=== PATIENT | female | born 1980 | race African-American/Black ===

== ENCOUNTER 2017-06-30 01:38 | Emergency (ER) | payer OTHER ==
[~2017-06-30 01:38] MED LIST: ALBU1AER INH; BECL0.07 INH; CLON.1 PO; CYCL-36 PO; DEPA500T PO; HYDR-2768 PO; LITH300 PO; OMPR20CCR PO; RISP4TAB41 PO
[2017-06-30] MEDS ORDERED: LACTATED RINGER'S 1000 ML INJ 1,000 ML IV SCH (02:48)
--- NOTE | 2017-06-30 02:59 | PD ---
HPI Chief Complaint Complains abdominal pain mainly when she sneezes but generally abdominal pain for 2 days Date Seen: Jun 30, 2017 Time Seen: 02:45 Travel History International Travel<30 Days: No Contact w/Intl Traveler<30Days: No Known Affected Area: No History of Present Illness HPI Patient is 36-year-old black female at 29 weeks is brought in by the intermediate where she is incarcerated for evaluation of abdominal pain for last 2 days, she denies bleeding or leakage of fluid, heart rate tracing is reactive and no contractions seen. Her pain is exacerbated greatly when she sneezes, and she has a history of asthma and sinus congestion Weeks Gestation: 29 Para: 5 : 6 Last Menstrual Period: Jun 30, 2017 History Past Medical History Narrative Medical Asthma Obstetric History Obstetric History 5 vaginal deliveries at term Past Surgical History Narrative Surgical Gallbladder removed Social History Narrative Social History Currently in intermediate Alcohol Use: No Tobacco Use: No Substance Abuse: No Allergies-Medications (Allergen,Severity, Reaction): Coded Allergies: No Known Allergies (Unverified , 06/30/17) Home Meds Active Scripts Cyclobenzaprine Hcl (Flexeril) 10 Mg Tab, 10 MG PO Q8HR Y for PAIN SCALE 1 TO 10 , #15 TAB Prov:Albino Peoples MD 04/20/16 Divalproex Sodium 500 mg (Depakote 500 mg) 500 Mg Tab, 500 MG PO DAILY, #15 TAB Prov:Erika Mas MD 04/07/16 Reported Medications Beclomethasone Diprop 40 mcg (Qvar 40 mcg) 40 Mcg Aer, 1 PUFF INH BID, BOX 04/07/16 Albuterol Sulfate (Proair Hfa) 8.5 Gm Aero, 2 PUFF INH Q4-6H Y for SHORTNESS OF BREATH, BOX * SHAKE WELL BEFORE USE * 04/07/16 Omeprazole (Prilosec 20 Mg Cap) 20 Mg Capcr, 20 MG PO DAILY, CAP 04/07/16 [place] Carbonate (Lithotabs) 300 Mg Tab, 300 MG PO TID, TAB 04/07/16 Risperidone (Risperdal) 4 Mg Tab, 4 MG PO HS, TAB 04/07/16 Hydrochlorothiazide (Hctz) 25 Mg Tab, 25 MG PO DAILY, TAB 04/07/16 Clonidine 0.1 mg (Catapres 0.1 mg) 0.1 Mg Tab, 0.1 MG PO HS, TAB 04/07/16 Review of Systems General / Constitutional: No: Fever, Weight Gain, Chills, Other Eyes: No: Diploplia, Blurred Vision, Visual changes, Pain, Photophobia HENT: No: Headaches, Vertigo, Lightheadedness Cardiovascular: No: Irregular Rhythm, Chest Pain or Discomfort, Palpitations, Tachycardia, Syncope, Varicosities, Edema, Cyanosis Respiratory: No: Cough, Short of Breath, Other Gastrointestinal: Abdominal Pain, No: Nausea, Vomiting, Diarrhea Genitourinary: No: Decreased Urinary Output, Oliguria Musculoskeletal: No: Limited ROM, Weakness, Cramping, Edema, Pain Skin: No Rash, No Itching, No Dryness, No Lumps, No Change in Pigmentation, No Change in Nails, No Alopecia, No Lesions Neurologic: No: Weakness, Dizziness, Syncope, Focal Abnormalities, Coordination Problem, Headache, Slurred Speech, Seizures Psychiatric: No: Depression, Suicidal Ideations, Homicidal Ideation Endocrine: No: Heat Intolerance, Cold Intolerance, Polydipsia, Polyuria, Other Physical Exam Narrative GENERAL: Well-nourished, well-developed patient. SKIN: Warm and dry. HEAD: Normocephalic and atraumatic. EYES: No scleral icterus. No injection or drainage. ENT: No nasal drainage noted. Mucous membranes pink. Airway patent. NECK: Supple, trachea midline. No JVD. CARDIOVASCULAR: Regular rate and rhythm without murmurs, gallops, or rubs. RESPIRATORY: Breath sounds equal bilaterally. No accessory muscle use. BREASTS: Bilateral exam showed no masses , no retractions, no nipple discharge. ABDOMEN/GI: Abdomen soft, tenderness in the upper quadrants mainly right upper quadrant , minimal to none in the lower quadrants, bowel sounds present, no rebound, + guarding Gravid to [-29] weeks size Fundal Height: [29-] GENITOURINARY: External Genitalia: intact and normal in appearance BUS glands: [-] Cervix: [Posterior-] Dilatation: [Closed-] Effacement: [-] Thick Station: [-3] ] Membranes: [intact ] Uterine Contractions: [-none] FHT's: Category: [1-] Baseline: [-133] Reactive: [-yes] Variability: [-mod] Decels: [-none] EXTREMITIES: No cyanosis or edema. BACK: Nontender without obvious deformity. No CVA tenderness. NEUROLOGICAL: Awake and alert. Motor and sensory grossly within normal limits. Five out of 5 muscle strength in all muscle groups. Normal speech. Data Data Orders Orders Vital Signs (Adult) .ON ADMISSION (06/30/17 02:48) ^ Labor Status (06/30/17 02:48) Cbc No Diff, Includes Plts (06/30/17 02:48) Comprehensive Metabolic Panel (06/30/17 02:48) Lactated Ringer's 1000 Ml Inj (Lr 1000 M (06/30/17 02:48) Ob/Psych Drug Screen, Urine (06/30/17 02:48) Fentanyl Inj (Fentanyl Inj) (06/30/17 03:00) MDM Interpretation(s) 28-year-old black female at 29 weeks who is brought in by the intermediate for evaluation of abdominal pain mainly upper abdominal pain. She has no bleeding or leakage of fluid. No contractions noted, heart rate tracing reactive, cervix is closed thick and high, urinalysis negative by dip on the floor Plan Plan a liter of IV fluid for hydration 50 g fentanyl IV check CBC CMP urine drug screen Diagnosis Diagnosis: Primary Impression: Upper abdominal pain, unspecified Additional Impression: 29 weeks gestation of Disposition: [address] LAW ENFORCEMNT Condition: Stable Rey Owen II, MD Jun 30, 2017 02:59
[2017-06-30 03:33] LABS: ALT (GPT) 21 U/L (10-53); ANION GAP 7 MEQ/L (5-15); AST (GOT) 25 U/L (15-37); BICARBONATE 25.6 MEQ/L (21.0-32.0); BLOOD UREA NITROGEN 8 MG/DL (7-18); CHLORIDE 106 MEQ/L (98-107); GLOMERULAR FILTRATION RATE 105 ML/MIN (>89); POTASSIUM 4.2 MEQ/L (3.5-5.1); SODIUM (NA) 139 MEQ/L (136-145)
[2017-06-30 03:36] LABS: ALKALINE PHOSPHATASE 105 U/L (45-117); TOTAL BILIRUBIN ADULT 0.2 MG/DL (0.2-1.0)
[2017-06-30 03:47] LABS: HEMATOCRIT 43.3 % (35.0-46.0); MEAN CORPUSCULAR HEMOGLOBIN 31.2 PG (27.0-34.0); MEAN CORPUSCULAR HGB CONC 33.9 % (32.0-36.0); PLATELET COUNT 253 TH/MM3 (150-450); RED CELL DISTRIBUTION WIDTH 12.8 % (11.6-17.2); REVIEW FLAG FINAL; WHITE BLOOD COUNT 18.9 TH/MM3 (4.0-11.0)
[2017-07-04 11:53] LABS: BATH SALTS (MDPV) UR NEG (NEG); ECSTASY (MDMA) UR NEG (NEG); GABAPENTIN UR NEG (NEG); HEROIN (6-ACETYLMORPHINE) UR NEG (NEG); HYDROMORPHONE U NEG (NEG); K2 SPICE UR NEG (NEG); OBMETHADONE UR NEG (NEG); PHENCYCLIDINE URINE NEG (NEG)
== END 2017-06-30 03:55 ==
LOC: EEVIPCON 01:38 → HOBED 01:38
DX: O26.893 Other specified pregnancy related conditions, third trimester (principal); R10.9 Unspecified abdominal pain; J45.909 Unspecified asthma, uncomplicated; Z3A.29 29 weeks gestation of pregnancy
CPT/HCPCS: 80053; 80307; 85027; 96374; 99284; G0481; J3010; J7120

== ENCOUNTER 2017-08-31 12:56 | Inpatient (IN) | payer OTHER ==
[2017-08-31] VITALS (35 sets, daily range): BP systolic 94–136; BP diastolic 53–87; PULSE 84–104; RESP 17–18; TEMP 97.8–98.6
[~2017-08-31] VITALS: Ht 170.2 cm; Wt 103.0 kg
[2017-08-31] MEDS ORDERED: ONDANSETRON HCL 4 MG/2 ML VIAL IV PUSH PRN (13:15)
[2017-08-31] MEDS ORDERED: ACETAMINOPHEN 325 MG TAB PO PRN (13:15)
[2017-08-31] MEDS ORDERED: SODIUM CHLORIDE 0.9% FLUSH 10 ML FLUSH IV FLUSH PRN ×2 (13:15)
[2017-08-31] MEDS ORDERED: CITRIC ACID-SODIUM CITRATE LIQ 30 ML UDC PO SCH (13:15)
[2017-08-31] MEDS ORDERED: DOCUSATE SODIUM 100 MG CAP PO PRN (13:15)
[2017-08-31] MEDS ORDERED: LIDOCAINE HCL 1% 50 ML VIAL INFIL PRN (13:15)
[2017-08-31] MEDS ORDERED: OXYTOCIN 30 UNITS-500ML PREMIX 500 ML IV ONE (13:15)
[2017-08-31] MEDS ORDERED: LIDOCAINE HCL 1% 50 ML VIAL I-DERMAL PRN (13:15)
[2017-08-31] MEDS ORDERED: MINERAL OIL 10 ML VIAL TOPICAL PRN (13:15)
[2017-08-31] MEDS ORDERED: ZOLPIDEM TARTRATE 5 MG TAB PO PRN (13:15)
--- NOTE | 2017-08-31 13:32 | HHI.HP ---
HPI Chief Complaint headache, elevated BP, protein in urine 2+ at 38 + weeks EGA Travel History International Travel<30 Days: No Contact w/Intl Traveler<30Days: No Known Affected Area: No History of Present Illness HPI 36 yo bf at 38+ weeks estimated gestational age, brought to office from [facility] for her fifth visit with [facility] beginning at about 32 weeks. She is high risk due to late entry, advanced maternal age, incarceration, asthma and bronchitis unknown if gestational diabetes--could not get a glucola done, nor could I get labs from [facility]. Not hypertensive initially. This am she apparently had a BP of ~160/110 and was given aldomet and sent to office. Complaining of severe headache, which is new. Has nausea. Is anxious. 2+ protein. moderate swelling. Cervix in office soft but closed. Has had five vaginal births at term with no described complications. Weeks Gestation: 38 Para: 5 : 6 History Past Medical History Narrative Medical history of pancreatitis-chronic and GERD history of post depression hx of bipolar disorder Allergies-Medications (Allergen,Severity, Reaction): Coded Allergies: No Known Allergies (Unverified , 06/30/17) Home Meds Active Scripts Cyclobenzaprine Hcl (Flexeril) 10 Mg Tab, 10 MG PO Q8HR Y for PAIN SCALE 1 TO 10 , #15 TAB Prov:Albino Peoples MD 04/20/16 Divalproex Sodium 500 mg (Depakote 500 mg) 500 Mg Tab, 500 MG PO DAILY, #15 TAB Prov:Erika Mas MD 04/07/16 Reported Medications Beclomethasone Diprop 40 mcg (Qvar 40 mcg) 40 Mcg Aer, 1 PUFF INH BID, BOX 04/07/16 Albuterol Sulfate (Proair Hfa) 8.5 Gm Aero, 2 PUFF INH Q4-6H Y for SHORTNESS OF BREATH, BOX * SHAKE WELL BEFORE USE * 04/07/16 Omeprazole (Prilosec 20 Mg Cap) 20 Mg Capcr, 20 MG PO DAILY, CAP 04/07/16 [place] Carbonate (Lithotabs) 300 Mg Tab, 300 MG PO TID, TAB 04/07/16 Risperidone (Risperdal) 4 Mg Tab, 4 MG PO HS, TAB 04/07/16 Hydrochlorothiazide (Hctz) 25 Mg Tab, 25 MG PO DAILY, TAB 04/07/16 Clonidine 0.1 mg (Catapres 0.1 mg) 0.1 Mg Tab, 0.1 MG PO HS, TAB 04/07/16 Physical Exam Narrative GENERAL: Well-nourished, well-developed patient. SKIN: Warm and dry. HEAD: Normocephalic and atraumatic. EYES: No scleral icterus. No injection or drainage. ENT: No nasal drainage noted. Mucous membranes pink. Airway patent. NECK: Supple, trachea midline. No JVD. CARDIOVASCULAR: Regular rate and rhythm without murmurs, gallops, or rubs. RESPIRATORY: Breath sounds equal bilaterally. No accessory muscle use. BREASTS: Bilateral exam showed no masses , no retractions, no nipple discharge. ABDOMEN/GI: Abdomen soft, non-tender, bowel sounds present, no rebound, no guarding FH 41. sonogram last week showed 75% vertex with anterior placenta EXTREMITIES: mild edema. BACK: Nontender without obvious deformity. No CVA tenderness. NEUROLOGICAL: Awake and alert. Motor and sensory grossly within normal limits. Five out of 5 muscle strength in all muscle groups. Normal speech. cervix soft, long, posterior FHT 140s Caprini VTE Risk Assessment Caprini VTE Risk Assessment: No/Low Risk (score <= 1) Caprini Risk Assessment Model Point Value = 1 Point Value = 2 Point Value = 3 Point Value = 5 Age 41-60 Minor surgery BMI > 25 kg/m2 Swollen legs Varicose veins or History of unexplained or recurrent spontaneous Oral contraceptives or hormone replacement Sepsis (< 1 month) Serious lung disease, including pneumonia (< 1 month) Abnormal pulmonary function Acute myocardial infarction Congestive heart failure (< 1 month) History of inflammatory bowel disease Medical patient at bed rest Age 61-74 Arthroscopic surgery Major open surgery (> 45 min) Laparoscopic surgery (> 45 min) Malignancy Confined to bed (> 72 hours) Immobilizing plaster cast Central venous access Age >= 75 History of VTE Family history of VTE Factor V Leiden Prothrombin [id number] Lupus anticoagulant Anticardiolipin antibodies Elevated serum homocysteine Heparin-induced thrombocytopenia Other congenital or acquired thrombophilia Stroke (< 1 month) Elective arthroplasty Hip, pelvis, or leg fracture Acute spinal cord injury (< 1 month) Prophylaxis Regimen Total Risk Factor Score Risk Level Prophylaxis Regimen 0-1 Low Early ambulation 2 Moderate Order ONE of the following: *Sequential Compression Device (SCD) *Heparin 5000 units SQ BID 3-4 Higher Order ONE of the following medications: *Heparin 5000 units SQ TID *Enoxaparin/Lovenox 40 mg SQ daily (WT < 150 kg, CrCl > 30 mL/min) *Enoxaparin/Lovenox 30 mg SQ daily (WT < 150 kg, CrCl > 10-29 mL/min) *Enoxaparin/Lovenox 30 mg SQ BID (WT < 150 kg, CrCl > 30 mL/min) AND/OR *Sequential Compression Device (SCD) 5 or more Highest Order ONE of the following medications: *Heparin 5000 units SQ TID (Preferred with Epidurals) *Enoxaparin/Lovenox 40 mg SQ daily (WT < 150 kg, CrCl > 30 mL/min) *Enoxaparin/Lovenox 30 mg SQ daily (WT < 150 kg, CrCl > 10-29 mL/min) *Enoxaparin/Lovenox 30 mg SQ BID (WT < 150 kg, CrCl > 30 mL/min) AND *Sequential Compression Device (SCD) Data Data Orders Orders Admit To Inpatient (08/31/17 ) Code Status (08/31/17 13:15) Activity Bed Rest (08/31/17 13:15) Intake + Output Q1H (08/31/17 13:15) Notify Dr. Phillips (08/31/17 13:15) Heart CONTINUOUS (08/31/17 13:15) Urinary Catheter Management MASON.Q8H (08/31/17 13:15) Lactated Ringer's 1000 Ml Inj (Lr 1000 M (08/31/17 13:15) Sodium Chloride 0.9% Flush (Ns Flush) (08/31/17 13:15) Sodium Chloride 0.9% Flush (Ns Flush) (08/31/17 21:00) Acetaminophen (Tylenol) (08/31/17 13:15) Ondansetron Inj (Zofran Inj) (08/31/17 13:15) Docusate Sodium (Colace) (08/31/17 13:15) Zolpidem (Ambien) (08/31/17 13:15) Hepatic Functional Panel (08/31/17 13:15) Cbc No Diff, Includes Plts (08/31/17 13:15) Uric Acid (08/31/17 13:15) Urinalysis - C+S If Indicated (08/31/17 13:15) Vital Signs (Adult) .Per protocol (08/31/17 13:15) Lidocaine 1% Inj (50 Ml) (Xylocaine 1% I (08/31/17 13:15) Citric Acid-Sodium Citrate Liq (Bicitra (08/31/17 13:15) Fentanyl Inj (Fentanyl Inj) (08/31/17 13:15) Fentanyl Inj (Fentanyl Inj) (08/31/17 13:15) Complete Blood Count With Diff (08/31/17 13:15) Hold Clot (08/31/17 13:15) Abo/Rh Blood Type (08/31/17 13:15) Rapid Plasma Regin (Rpr) W Ttr (08/31/17 13:15) Hepatitis Profile (08/31/17 13:15) No Care Spec Serology (08/31/17 13:15) Resp Oxygen Non Rebreathe Mask (08/31/17 ) Oxytocin 30 Units-500ml Premix (Pitocin (08/31/17 13:15) Lidocaine 1% Inj (50 Ml) (Xylocaine 1% I (08/31/17 13:15) Light Mineral Oil (Muri-Lube Oil) (08/31/17 13:15) Admit To Inpatient (08/31/17 ) Diet Regular Basic (08/31/17 Lunch) Activity Oob Ad Chana (08/31/17 13:15) ^ Labor Induction (08/31/17 13:15) ^ Vaginal Insert (08/31/17 13:15) ^ Vaginal Lavage (08/31/17 13:15) Heart (08/31/17 13:15) Sodium Chloride 0.9% Flush (Ns Flush) (08/31/17 21:00) Sodium Chloride 0.9% Flush (Ns Flush) (08/31/17 13:15) Inpatient Certification (08/31/17 ) Specimen To Be Collected PRN (08/31/17 13:15) Assessment/Plan Assessment and Plan grand multip with late care due to incarceration has symptoms of preclampsia mild at 38 + weeks. Lamar score is poor Will use cervidil and if this exacerbates her asthma will pull it and use low dose pit MgSO4 and BP meds pending labs and vitals anticipate will notify manager public Rosario Perez MD Aug 31, 2017 13:32
[2017-08-31] MEDS ORDERED: TERBUTALINE INJ 1 MG/ML AMP ONE (14:20)
[2017-08-31] MEDS ORDERED: TERBUTALINE INJ 1 MG/ML AMP SQ SCH (14:20)
[2017-08-31 14:25] LABS: AUTOMATED NEUTROPHIL # 11.7 TH/MM3 (1.8-7.7); BASOPHIL # 0.1 TH/MM3 (0-0.2); BASOPHIL % 0.4 % (0.0-2.0); EOSINOPHIL # 0.3 TH/MM3 (0-0.4); EOSINOPHIL % 2.1 % (0.0-4.0); HEMATOCRIT 41.6 % (35.0-46.0); HEMO FLAGS DIFF FINAL; LYMPH % 15.1 % (9.0-44.0); LYMPHOCYTE # 2.3 TH/MM3 (1.0-4.8); MEAN CELL VOLUME 89.3 FL (80.0-100.0); MEAN CORPUSCULAR HEMOGLOBIN 30.1 PG (27.0-34.0); MEAN CORPUSCULAR HGB CONC 33.7 % (32.0-36.0); MONO % 6.6 % (0.0-8.0); NEUT % 75.8 % (16.0-70.0); PLATELET COUNT 208 TH/MM3 (150-450); RED BLOOD COUNT 4.66 MIL/MM3 (4.00-5.30); RED CELL DISTRIBUTION WIDTH 13.3 % (11.6-17.2); WHITE BLOOD COUNT 15.4 TH/MM3 (4.0-11.0)
[2017-08-31 14:31] LABS: BACTERIA, URINE OCC /hpf; BLOOD, URINE SMALL (NEG); COMMENT (UR) CULTURE INDICATED; CULTURE IF INDICATED CULTURE INDICATED; GLUCOSE,URINE NEG (NEG); KETONE, URINE TRACE mg/dL (NEG); MUCUS URINE FEW /lpf (OCC); NITRITE,URINE NEG (NEG); PH, URINE 6.5 (5.0-8.5); SQUAMOUS EPITHELIAL CELL URINE 5 /hpf (0-5); URINE COLOR YELLOW (YELLW/STRAW)
[2017-08-31 14:59] LABS: URIC ACID 6.5 MG/DL (2.6-6.0)
[2017-08-31 15:01] LABS: INDIRECT BILIRUBIN 0.2 MG/DL (0.0-0.8); TOTAL BILIRUBIN ADULT 0.3 MG/DL (0.2-1.0)
[2017-08-31] MEDS ORDERED: TERBUTALINE INJ 1 MG/ML AMP SQ PRN (15:06)
[2017-08-31] MEDS: LACTATED RINGER'S 1000 ML INJ 1,000 ML IV SCH ×2 (15:06→20:47)
--- NOTE | 2017-08-31 19:36 | PD.LABORPN ---
Objective Vital Signs Vital Signs Date Time Temp Pulse Resp B/P (MAP) Pulse Ox O2 Delivery O2 Flow Rate FiO2 08/31/17 19:22 98.0 08/31/17 19:11 17 08/31/17 19:00 92 111/74 (86) 08/31/17 18:15 18 08/31/17 18:00 91 94/58 (70) 08/31/17 17:15 98.6 08/31/17 17:00 90 111/72 (85) 08/31/17 16:01 100 102/53 (69) 08/31/17 15:00 97.8 08/31/17 15:00 18 08/31/17 15:00 104 08/31/17 14:45 96 118/76 (90) 08/31/17 14:30 90 110/71 (84) 08/31/17 14:15 86 106/70 (82) 08/31/17 14:00 84 111/72 (85) 08/31/17 13:46 88 117/78 (91) 08/31/17 13:30 18 08/31/17 13:30 98 115/77 (90) 08/31/17 13:25 90 113/72 (86) Objective Called by RN that strip showed repetitive late decelerations with good BTBV and cervidil held. Terb given for closely spaced contractions. No further lates strip currently category one, but no contaactions Weeks Gestation: 38 Gest Age Assessed Date: Aug 31, 2017 Assessment/Plan Assessment and Plan will start low dose pitocin and watch closely. Rosario Perez MD Aug 31, 2017 19:36
[2017-08-31] MEDS ORDERED: OXYTOCIN 30 UNITS-500ML PREMIX 500 ML IV SCH (19:45)
[2017-08-31] MEDS ORDERED: SODIUM CHLORIDE 0.9% FLUSH 10 ML FLUSH IV FLUSH SCH ×2 (21:00)
[2017-09-01] VITALS (79 sets, daily range): BP systolic 88–136; BP diastolic 45–90; PULSE 71–104; RESP 16–20; TEMP 97.6–98.6; O2SAT 96–100
--- NOTE | 2017-09-01 07:45 | HHI.PR ---
[facility] Note Note S: Patient doing well, states contractions are mildly painful, denies loss of fluid, occasional vaginal spotting. Denies headache, blurred vision, epigastric pain. O: VS: BP range overnight 112-122/71-90. Pulse range 70 to 80s Exam: Closed/thick/high/soft/mid position FHTs: 130s to 140s, moderate variability, accelerations present, no decelerations present at this time TOCO: Contractions every 3-5 minutes A/P 36-year-old at 38 weeks and 4 days by LMP and 33 week ultrasound here today for induction of labor secondary to category 2 tracing 1. IUP: Cat 1 tracing currently, yesterday had cat 2 tracing with intermittent and prolonged lates on admission, responded a Terb and IV fluid bolus. - Continuous monitoring and tocometry - Cephalic by ultrasound this morning, GBS unknown, collected rapid GBS now, EFW 7.5 pounds. On 08/15/2017 by ultrasound 3013 g 74th percentile anterior placenta - PNLs pending. 2. IOL: secondary to persistent category 2 tracing: Lamar score unfavorable, patient on low-dose pit overnight, had some lates w/ pit at 5 mu/min, currently at 3 and will d/c now. Will place Cervidil for ripening, allow to eat if reassuring tracing after 2 hours on cervidil. Patient understands that ultimately may end up with a due to intolerance of labor however our goal is for a safe vaginal delivery as she is multiparous. 3. Grand multipara: Will have uterotonic's in the room, active 3rd stage and prepare for PPH, patient has a history of hemorrhage. T&S. 4. Advanced maternal age: Normal anatomy, no aneuploidy screening performed 5. Asthma: controlled w/o meds, avoid hemabate 6. h/o BPD and PPD: will follow closely and address 7. Elevated BP: per notes say had elevated BP as outpatient and headache, only 1 diastolic in 90s here, pt w/o sn/sx of prec, HELLP labs WNL (fish agent not done), no proteinuria on arrival will continue with routine vitals. Edson Baltazar MD Sep 01, 2017 07:45
[2017-09-01] MEDS ORDERED: DINOPROSTONE 10 MG VAG INSERT VAGINAL ONE (08:15)
[2017-09-01] MEDS ORDERED: INFLUENZA VIRUS VACCINE (QUADRIVALENT) 0.5 ML SYR IM ONE (10:00)
[2017-09-01] MEDS ORDERED: PNEUMOCOCCAL POLYVALENT INJ 25 MCG/0.5 ML SYR IM ONE (10:00)
[2017-09-01] MEDS ORDERED: fentaNYL 2MCG-BUPIV 0.125% INJ 100 ML ONE (14:00)
--- NOTE | 2017-09-01 14:11 | PD.LABORPN ---
Subjective Subjective states this is the worst pain she has ever felt. can't tolerate cervical checks or attempt to ARM Objective Vital Signs Vital Signs Date Time Temp Pulse Resp B/P (MAP) Pulse Ox O2 Delivery O2 Flow Rate FiO2 09/01/17 12:44 88 119/70 (86) 09/01/17 12:44 98.3 18 09/01/17 09:15 87 16 09/01/17 09:15 97.8 09/01/17 09:15 110/65 (80) 09/01/17 07:16 82 121/82 (95) 09/01/17 07:15 18 09/01/17 07:01 83 114/79 (91) 09/01/17 06:46 79 118/79 (92) 09/01/17 06:31 79 122/73 (89) 09/01/17 06:16 84 09/01/17 06:16 108/90 (96) Objective 50%/-3/2 cm infant applied to inner os will not permit AROM without epidural first strip reactive, but has had intermittent periods of what appear to be lates-- they come and they resolve Weeks Gestation: 38 Gest Age Assessed Date: Aug 31, 2017 Medical induction start date: Aug 31, 2017 Medical induction start time: 19:00 Assessment/Plan Assessment and Plan grand multip admitted with elevated blood pressures and proteiniuria but likely these were anxiety and UTI however periods of late decelerations on her strip followed by resolution have precluded discharge will AROM after epidural and commit to process. Either vaginal or section. Rosario Perez MD Sep 01, 2017 14:11
[2017-09-01] MEDS ORDERED: OXYTOCIN 30 UNITS-500ML PREMIX 500 ML IV SCH (14:15)
[2017-09-01] MEDS ORDERED: SODIUM CHLORIDE 0.9% FLUSH 10 ML FLUSH IV FLUSH PRN ×2 (14:15→17:00)
[2017-09-01] MEDS ORDERED: ePHEDrine/NS 25 MG/5 ML SYR ONE (14:41)
[2017-09-01] MEDS: ePHEDrine/NS 25 MG/5 ML SYR IV PUSH PRN ×3 (14:42→14:58)
[2017-09-01] MEDS ORDERED: PENICILLIN G POTASSIUM INJ 5,000,000 UNITS in SODIUM CHLORIDE 0.9% INJ 100 ML IV ONE (15:00)
[2017-09-01] MEDS: LACTATED RINGER'S 1000 ML INJ 1,000 ML IV SCH (15:03)
[2017-09-01] MEDS ORDERED: DO NOT ADMINISTER ANTICOAGULANTS PRN (15:15)
[2017-09-01] MEDS ORDERED: NO SYSTEM NARCOTICS PRN (15:15)
[2017-09-01] MEDS ORDERED: fentaNYL 2MCG-BUPIV 0.125% 100 ML EPIDURAL SCH (15:15)
[2017-09-01] MEDS ORDERED: ACETAMINOPHEN 1000 MG/100 ML 100 ML IV ONE ×2 (15:20→15:30)
[2017-09-01 16:14] LABS: BLOOD GAS BASE EXCESS 0.6 mmol/L (-2-2); BLOOD GAS O2 HGB SATURATION 17 % (90-100); CORD BLOOD GAS HCO3 27 mmol/L (21-29); CORD BLOOD GAS PCO2 61 mmHG (34-78); CORD BLOOD GAS PH 7.27 (7.14-7.42); CORD BLOOD GAS PO2 15 mmHG (3.0-40.0); DRAW SITE CORD BLOOD; STAT NO
--- NOTE | 2017-09-01 16:48 | PD.OB.DELI ---
Procedure Note Section Procedure Pre Op Diagnosis: (1) Late deceleration of heart rate (2) Hypertension affecting (3) Third trimester Post Op Diagnosis: (1) Delivered by section (2) Non-reassuring heart rate with late deceleration Performed by Rosario Perez Procedure: Primary Low Transverse Sec Indication for delivery: Nonreassuring heart tracing Previous condition: None Informed consent obtained: For anesthesia, For procedure Confirmed correct: Patient, Procedure, Site, Time-out taken Anesthesia: Epidural Medication prior to procedure: As documented in eMAR, Antacids, Antibiotics, IV , Antiemetics Monitoring during procedure: Blood pressure monitoring Urinary catheter: Inserted using sterile technique, To dependent drainage Sterile preparation: Duraprep, In usual fashion Position: Supine with wedge to right side Operative Features Skin Incision: Pfannenstiel Uterine Incision: Low transverse w/knife / blunt ext Membranes Ruptured: Artificially, Appearance of fluid (clear) Presentation: Other (rot) Delivery date: Sep 01, 2017 Delivery time: 16:47 Delivery of infant: Assisted : Female, Single One Minute : 8 Five Minute : 9 Weight: 7 Status of infant: Viable, Cord blood, Umbilical cord, Nursery present Placenta delivered: Intact Medications: Antibiotics, Oxytocin Estimated blood loss: 500 Procedure tolerated: Well Maternal Condition: Stable Condition: Stable Procedure in detail dictated Rosario Perez MD Sep 01, 2017 16:48
[2017-09-01] MEDS ORDERED: ZOLPIDEM TARTRATE 5 MG TAB PO PRN (17:00)
[2017-09-01] MEDS ORDERED: oxyCODONE/ACETAMINOPHEN 5 MG/325 MG TAB PO PRN (17:00)
[2017-09-01] MEDS ORDERED: ONDANSETRON HCL 4 MG/2 ML VIAL IV PUSH PRN (17:00)
[2017-09-01] MEDS ORDERED: SIMETHICONE 80 MG CHEWABLE TAB PO PRN (17:00)
[2017-09-01] MEDS: OXYTOCIN 30 UNITS-500ML PREMIX 500 ML IV ONE ×2 (17:00→17:53)
[2017-09-01] MEDS ORDERED: OXYTOCIN 30 UNITS-500ML PREMIX 500 ML ONE (17:52)
[2017-09-01] MEDS ORDERED: EPIDURAL-NALOXONE HCL 0.4 MG/ML AMP IV PUSH PRN (18:45)
[2017-09-01] MEDS ORDERED: EPIDURAL-NO SYSTEMIC NARCOTICS PRN (18:45)
[2017-09-01] MEDS ORDERED: EPIDURAL-DO NOT ADMINISTER ANTICOAGULANTS PRN (18:45)
[2017-09-01] MEDS ORDERED: EPIDURAL-DIPHENHYDRAMINE HCL 50 MG CAP PO PRN (18:45)
[2017-09-01] MEDS ORDERED: PENICILLIN G POTASSIUM INJ 2,500,000 UNITS in SODIUM CHLORIDE 0.9% INJ 100 ML IV SCH (19:00)
[2017-09-01] MEDS ORDERED: SODIUM CHLORIDE 0.9% FLUSH 10 ML FLUSH IV FLUSH SCH ×2 (21:00)
[2017-09-01] MEDS: EPIDURAL-DIPHENHYDRAMINE HCL 50 MG/ML VIAL IV PUSH PRN (21:19)
[2017-09-01] MEDS ORDERED: LACTATED RINGER'S 1000 ML INJ 1,000 ML IV SCH (21:48)
[2017-09-02] VITALS: BP 115/66; PULSE 98; RESP 18; TEMP 98.5
[2017-09-02] MEDS ORDERED: ACETAMINOPHEN 1000 MG/100 ML 100 ML IV SCH
[2017-09-02] MEDS ORDERED: OXYTOCIN 30 UNITS-500ML PREMIX 500 ML IV PRN (03:00)
[2017-09-02 04:30] VITALS: BP 112/65; PULSE 109; RESP 18; TEMP 98.7
[2017-09-02] MEDS: oxyCODONE/ACETAMINOPHEN 5 MG/325 MG TAB PO PRN ×3 (04:54→19:46)
[2017-09-02] MEDS: IBUPROFEN 600 MG TAB PO PRN ×3 (04:54→19:47)
[2017-09-02 05:57] LABS: AUTOMATED NEUTROPHIL # 14.3 TH/MM3 (1.8-7.7); BASOPHIL # 0.1 TH/MM3 (0-0.2); BASOPHIL % 0.3 % (0.0-2.0); EOSINOPHIL # 0.2 TH/MM3 (0-0.4); EOSINOPHIL % 0.9 % (0.0-4.0); HEMATOCRIT 36.1 % (35.0-46.0); HEMO FLAGS DIFF FINAL; LYMPH % 8.7 % (9.0-44.0); LYMPHOCYTE # 1.5 TH/MM3 (1.0-4.8); MEAN CELL VOLUME 89.9 FL (80.0-100.0); MEAN CORPUSCULAR HEMOGLOBIN 30.4 PG (27.0-34.0); MEAN CORPUSCULAR HGB CONC 33.8 % (32.0-36.0); MONO % 7.6 % (0.0-8.0); NEUT % 82.5 % (16.0-70.0); PLATELET COUNT 191 TH/MM3 (150-450); RED BLOOD COUNT 4.01 MIL/MM3 (4.00-5.30); RED CELL DISTRIBUTION WIDTH 13.3 % (11.6-17.2); WHITE BLOOD COUNT 17.4 TH/MM3 (4.0-11.0)
--- NOTE | 2017-09-02 08:03 | HHI.OB ---
Subjective Post Operative Day: 1 Remarks Doing well itching terribly pain moderate Objective Vitals/I&O Vital Signs Date Time Temp Pulse Resp B/P (MAP) Pulse Ox O2 Delivery O2 Flow Rate FiO2 09/02/17 04:30 98.7 109 18 112/65 (81) 09/02/17 00:00 98.5 98 18 115/66 (82) 09/01/17 20:30 98.6 101 18 121/89 (100) 09/01/17 18:25 88 118/72 (87) 09/01/17 18:25 97.7 20 09/01/17 17:50 75 18 115/71 (86) 97 09/01/17 17:35 71 16 109/65 (80) 09/01/17 17:35 96 09/01/17 17:20 78 18 118/72 (87) 99 09/01/17 17:05 74 18 106/57 (73) 100 09/01/17 16:50 79 104/67 (79) 09/01/17 16:50 18 09/01/17 16:50 98.4 09/01/17 16:50 97 09/01/17 15:35 84 09/01/17 15:31 88 121/72 (88) 09/01/17 15:30 81 09/01/17 15:23 78 123/62 (82) 09/01/17 15:20 95 09/01/17 15:20 84 121/65 (83) 09/01/17 15:19 83 113/72 (86) 09/01/17 15:16 84 124/65 (84) 09/01/17 15:13 79 122/66 (84) 09/01/17 15:11 94 125/66 (85) 09/01/17 15:10 97 09/01/17 15:07 85 114/45 (68) 09/01/17 15:05 81 09/01/17 15:05 82 111/56 (74) 09/01/17 15:02 118/64 (82) 09/01/17 15:02 86 09/01/17 15:01 18 09/01/17 15:00 92 09/01/17 15:00 114/62 (79) 09/01/17 15:00 85 09/01/17 14:59 85 113/56 (75) 09/01/17 14:57 85 114/53 (73) 09/01/17 14:55 86 09/01/17 14:55 88 114/59 (77) 09/01/17 14:53 77 114/61 (78) 09/01/17 14:50 79 09/01/17 14:50 90 116/64 (81) 09/01/17 14:48 87 112/56 (74) 09/01/17 14:47 80 114/57 (76) 09/01/17 14:45 76 121/57 (78) 09/01/17 14:45 75 09/01/17 14:43 79 117/63 (81) 09/01/17 14:41 86 110/61 (77) 09/01/17 14:40 82 09/01/17 14:36 91 117/74 (88) 09/01/17 14:35 103 09/01/17 14:34 98 121/70 (87) 09/01/17 14:32 99 120/73 (89) 09/01/17 14:30 98 136/80 (98) 09/01/17 14:30 98.5 18 09/01/17 14:30 95 09/01/17 14:28 104 116/89 (98) 09/01/17 14:26 94 122/82 (95) 09/01/17 14:25 95 128/82 (97) 09/01/17 14:25 98 09/01/17 14:23 93 126/77 (93) 09/01/17 14:20 84 09/01/17 14:15 92 09/01/17 14:10 91 09/01/17 12:44 88 119/70 (86) 09/01/17 12:44 98.3 18 09/01/17 09:15 87 16 09/01/17 09:15 97.8 09/01/17 09:15 110/65 (80) Result Diagram: 09/02/17 0524 Objective Remarks GENERAL: Well-nourished, well-developed patient. CARDIOVASCULAR: Regular rate and rhythm without murmurs, gallops, or rubs. RESPIRATORY: Breath sounds equal bilaterally. No accessory muscle use. ABDOMEN/GI: Abdomen soft, non-tender, bowel sounds present. Incision: Clean, dry and intact. bandage intact Fundus: Firm, non-tender at umbilicus. GENITOURINARY: Light to moderate bleeding. EXTREMITIES: No cyanosis or edema, non-tender, without signs of DVT. Medications and IVs Current Medications Medications (Trade) Dose Ordered Sig/Nelli Route Start Time Stop Time Status Last Admin (Tylenol) 650 mg Q4H PRN PO 08/31/17 13:15 (Flu (Quadrivalent) Vaccine Inj) 0.5 ml ONCE ONCE IM 09/02/17 10:00 09/02/17 10:01 Lactated Ringer's 1,000 ml @ 100 mls/hr Q10H IV 09/01/17 21:48 09/02/17 17:47 09/01/17 23:25 Oxytocin 500 ml @ 100 mls/hr UNSCH X1 PRN IV 09/02/17 03:00 09/03/17 02:59 (NS Flush) 2 ml BID IV FLUSH 09/01/17 21:00 (NS Flush) 2 ml UNSCH PRN IV FLUSH 09/01/17 17:00 (Mylicon Chew) 80 mg QID PRN PO 09/01/17 17:00 (Motrin) 600 mg Q6H PRN PO 09/01/17 17:00 09/02/17 04:54 (Percocet 5-325 Mg) 1 tab Q4H PRN PO 09/01/17 17:00 (Percocet 5-325 Mg) 2 tab Q4H PRN PO 09/01/17 17:00 09/02/17 04:54 ([place]-Colace) 2 tab Q12H PRN PO 09/01/17 17:00 (Ambien) 5 mg HS PRN PO 09/01/17 17:00 (M-M-R Ii Inj) 0.5 ml ONCE ONCE SQ 09/02/17 16:00 09/02/17 16:01 (Boostrix Inj) 0.5 ml ONCE ONCE IM 09/02/17 16:00 09/02/17 16:01 (Zofran Inj) 4 mg Q6H PRN IV PUSH 09/01/17 17:00 Miscellaneous Information NO SYSTEMIC NARCOTICS TO BE GIVEN FO... UNSCH PRN .XX 09/01/17 18:45 09/02/17 18:44 (Narcan Inj) 0.4 mg UNSCH PRN IV PUSH 09/01/17 18:45 09/02/17 18:44 (Benadryl Inj) 25 mg Q6H PRN IV PUSH 09/01/17 18:45 09/02/17 18:44 09/01/17 21:19 (Benadryl) 50 mg Q6H PRN PO 09/01/17 18:45 09/02/17 18:44 09/02/17 04:53 Miscellaneous Information ALL NURSING DEPARTMENTS UNSCH PRN .XX 09/01/17 18:45 09/02/17 18:44 Acetaminophen 100 ml @ 400 mls/hr Q8H IV 09/02/17 00:00 09/02/17 08:14 09/01/17 23:26 Assessment/Plan Assessment and Plan grand multip with late care due to incarceration has symptoms of preclampsia mild at 38 + weeks. Lamar score is poor Will use cervidil and if this exacerbates her asthma will pull it and use low dose pit MgSO4 and BP meds pending labs and vitals anticipate will notify public health outreach worker 09/02/17 doing well likely to [facility] in am keep bandage on Rosario Perez MD Sep 02, 2017 08:03
[2017-09-02] MEDS ORDERED: OXYC1TAB63 PO (08:06)
--- NOTE | 2017-09-02 08:07 | HHI.DCPOC ---
Discharge Care Plan Report Symptoms to Your Doctor -Temperature above 100.5 degrees -Redness, of incision or excessive or foul smelling drainage -Unusual pain or calf pain -Increased vaginal bleeding -Painful or difficulty urinating -Feelings of extreme sadness or anxiety after 2 weeks Goals to Promote Your Health * To prevent worsening of your condition and complications * To maintain your health at the optimal level Directions to Meet Your Goals Take your medications as prescribed Follow your dietary instruction Follow activity as directed Ensure plenty of rest for recovery Drink fluids for hydration Keep your appointments as scheduled Take your immunizations and boosters as scheduled If your symptoms worsen call your PCP, if no PCP go to Urgent Care Center or Emergency Room Smoking is Dangerous to Your Health. Avoid second hand smoke Call the 24-hour crisis hotline for domestic abuse at Rosario Perez MD Sep 02, 2017 08:07
[2017-09-02] MEDS ORDERED: INFLUENZA VIRUS VACCINE (QUADRIVALENT) 0.5 ML SYR IM ONE (10:00)
[2017-09-02] MEDS: EPIDURAL-DIPHENHYDRAMINE HCL 50 MG/ML VIAL IV PUSH PRN (11:08)
[2017-09-02] MEDS ORDERED: MEASLES, MUMPS, RUBELLA VACCINE 0.5 ML VIAL SQ ONE (16:00)
[2017-09-02] MEDS ORDERED: DIPHTH/TETANUS/ACEL PERTUSSIS (BOOSTER) 0.5 ML VIAL/PFS IM ONE (16:00)
[2017-09-02] MEDS: DOCUSATE SODIUM 50 MG/SENNA 8.6 MG TAB PO PRN (19:46)
[2017-09-02 20:42] VITALS: BP 131/83; PULSE 97; RESP 17; TEMP 98.5
[2017-09-03] MEDS: oxyCODONE/ACETAMINOPHEN 5 MG/325 MG TAB PO PRN ×5 (00:39→20:43)
[2017-09-03] MEDS: IBUPROFEN 600 MG TAB PO PRN ×3 (05:12→20:40)
--- NOTE | 2017-09-03 08:57 | HHI.OB ---
Subjective Post Operative Day: 2 Remarks doing well Objective Vitals/I&O Vital Signs Date Time Temp Pulse Resp B/P (MAP) Pulse Ox O2 Delivery O2 Flow Rate FiO2 09/02/17 20:42 98.5 17 09/02/17 20:42 97 131/83 (99) Result Diagram: 09/02/17 0524 Objective Remarks GENERAL: Well-nourished, well-developed patient. CARDIOVASCULAR: Regular rate and rhythm without murmurs, gallops, or rubs. RESPIRATORY: Breath sounds equal bilaterally. No accessory muscle use. ABDOMEN/GI: Abdomen soft, non-tender, bowel sounds present. Incision: Clean, dry and intact. bandage intact Fundus: Firm, non-tender at umbilicus. GENITOURINARY: Light to moderate bleeding. EXTREMITIES: No cyanosis or edema, non-tender, without signs of DVT. Medications and IVs Current Medications Medications (Trade) Dose Ordered Sig/Nelli Route Start Time Stop Time Status Last Admin (Tylenol) 650 mg Q4H PRN PO 08/31/17 13:15 (NS Flush) 2 ml BID IV FLUSH 09/01/17 21:00 (NS Flush) 2 ml UNSCH PRN IV FLUSH 09/01/17 17:00 (Mylicon Chew) 80 mg QID PRN PO 09/01/17 17:00 (Motrin) 600 mg Q6H PRN PO 09/01/17 17:00 09/03/17 05:12 (Percocet 5-325 Mg) 1 tab Q4H PRN PO 09/01/17 17:00 (Percocet 5-325 Mg) 2 tab Q4H PRN PO 09/01/17 17:00 09/03/17 05:12 (Magy-Colace) 2 tab Q12H PRN PO 09/01/17 17:00 09/02/17 19:46 (Ambien) 5 mg HS PRN PO 09/01/17 17:00 (Zofran Inj) 4 mg Q6H PRN IV PUSH 09/01/17 17:00 (Vistaril) 50 mg Q8H PRN PO 09/02/17 08:15 09/02/17 19:47 Assessment/Plan Problem List: (1) Delivered by section ICD Codes: O82 - Encounter for delivery without indication (2) Non-reassuring heart rate with late deceleration ICD Codes: O36.8390 - Maternal care for abnormalities of the heart rate or rhythm, unspecified trimester, not applicable or unspecified Assessment and Plan POD#2 s/p primary LSTC for NRFHR 09/03/17 doing well likely to group home in am keep bandage on Discharge Planning routine Attending Attestation pt seen by Flora Felder MD Sep 03, 2017 08:57
[2017-09-03] MEDS ORDERED: IBUP1TAB7 PO (09:00)
[2017-09-03] MEDS: DOCUSATE SODIUM 50 MG/SENNA 8.6 MG TAB PO PRN ×2 (13:09→20:38)
[2017-09-03 20:30] VITALS: BP 110/74; PULSE 95; RESP 20; TEMP 98.4
[2017-09-03 22:20] VITALS: RESP 18
[2017-09-04] MEDS: oxyCODONE/ACETAMINOPHEN 5 MG/325 MG TAB PO PRN ×3 (00:36→10:08)
[2017-09-04] MEDS: IBUPROFEN 600 MG TAB PO PRN ×2 (04:54→10:08)
--- NOTE | 2017-09-04 09:08 | HHI.OB ---
Subjective Post Operative Day: 3 Remarks +flatus, not ambulating much Objective Vitals/I&O Vital Signs Date Time Temp Pulse Resp B/P (MAP) Pulse Ox O2 Delivery O2 Flow Rate FiO2 09/03/17 22:20 18 09/03/17 22:20 18 09/03/17 20:30 98.4 95 20 110/74 (86) Result Diagram: 09/02/17 0524 Objective Remarks GENERAL: Well-nourished, well-developed patient. CARDIOVASCULAR: Regular rate and rhythm without murmurs, gallops, or rubs. RESPIRATORY: Breath sounds equal bilaterally. No accessory muscle use. ABDOMEN/GI: Abdomen soft, non-tender, bowel sounds present. Incision: Clean, dry and intact. bandage intact Fundus: Firm, non-tender at umbilicus. GENITOURINARY: Light to moderate bleeding. EXTREMITIES: No cyanosis or edema, non-tender, without signs of DVT. Medications and IVs Current Medications Medications (Trade) Dose Ordered Sig/Nelli Route Start Time Stop Time Status Last Admin (Tylenol) 650 mg Q4H PRN PO 08/31/17 13:15 (NS Flush) 2 ml BID IV FLUSH 09/01/17 21:00 (NS Flush) 2 ml UNSCH PRN IV FLUSH 09/01/17 17:00 (Mylicon Chew) 80 mg QID PRN PO 09/01/17 17:00 (Motrin) 600 mg Q6H PRN PO 09/01/17 17:00 09/04/17 04:54 (Percocet 5-325 Mg) 1 tab Q4H PRN PO 09/01/17 17:00 09/04/17 03:36 (Percocet 5-325 Mg) 2 tab Q4H PRN PO 09/01/17 17:00 09/04/17 04:54 (Magy-Colace) 2 tab Q12H PRN PO 09/01/17 17:00 09/03/17 20:38 (Ambien) 5 mg HS PRN PO 09/01/17 17:00 (Zofran Inj) 4 mg Q6H PRN IV PUSH 09/01/17 17:00 (Vistaril) 50 mg Q8H PRN PO 09/02/17 08:15 12/1/17 19:47 Assessment/Plan Problem List: (1) Delivered by section ICD Codes: O82 - Encounter for delivery without indication (2) Non-reassuring heart rate with late deceleration ICD Codes: O36.8390 - Maternal care for abnormalities of the heart rate or rhythm, unspecified trimester, not applicable or unspecified Assessment and Plan POD#3 s/p primary LSTC for NRFHR 09/03/17 doing well likely to correction in am keep bandage on 09/04/17 stable, to correctional facility today f/u with Dr Perez in 1 week Discharge Planning routine Attending Attestation pt seen by Flora Felder MD Sep 04, 2017 09:07
[2017-09-04] MEDS: DOCUSATE SODIUM 50 MG/SENNA 8.6 MG TAB PO PRN (10:09)
== END 2017-09-04 13:45 | disposition home or self-care (01) | DRG 765 ==
LOC: H2EA 12:56 → H1EA 09-01 18:12
PROVIDERS: ADMIT Obstetrics & Gynecology; ATTEND Obstetrics & Gynecology
PROC: 10D00Z1 Extraction of Products of Conception, Low, Open Approach (ICD-10-PCS; principal; 2017-08-31)
DX: O76 Abnormality in fetal heart rate and rhythm complicating labor and delivery (principal); O75.3 Other infection during labor; N39.0 Urinary tract infection, site not specified; Z37.0 Single live birth; O99.52 Diseases of the respiratory system complicating childbirth; O16.4 Unspecified maternal hypertension, complicating childbirth; J45.909 Unspecified asthma, uncomplicated; O99.62 Diseases of the digestive system complicating childbirth; K21.9 Gastro-esophageal reflux disease without esophagitis; O99.344 Other mental disorders complicating childbirth; F31.9 Bipolar disorder, unspecified; Z3A.38 38 weeks gestation of pregnancy; Z22.330 Carrier of Group B streptococcus
CPT/HCPCS: 80074; 80076; 80307; 81001; 82805; 84550; 85025; 86592; 86703; 86900; 86901; 87086; 87150; 90686; 90715; G0481; J0131; J1200; J2405; J2590; J3010; J3105; J7120; Q0163; Q2038